=== PATIENT | female | born 1970 | race Hispanic/Latino ===

== ENCOUNTER 2021-01-31 13:15 | Outpatient (CLI) | payer OTHER | END 2021-01-31 13:16 | disposition home or self-care (01) | LOC: BURLAB 13:15 | PROVIDERS: ATTEND Registered Nurse Community Health | DX: R19.7 Diarrhea, unspecified (principal) | CPT/HCPCS: 87045; 87046; 87427; 87449 ==

== ENCOUNTER 2021-02-01 08:22 | Emergency (ER) | payer SELFPAY ==
[2021-02-01 09:00] LABS: #Basophils 0.1 thou/uL (0.0-0.2); #Lymphocytes 1.8 thou/uL (1.20-3.40); #Monocytes 0.9 thou/uL (0.11-0.59); #Neutrophils 9.8 thou/uL (1.40-6.50); %Basophils 0.4 % (0.0-1.0); %Eosinophils 0.3 % (0.0-10.0); %Lymphocytes 14.3 % (21.0-51.0); %Monocytes 6.9 % (0.0-10.0); %Neutrophils 78.1 % (42.0-75.0); Hemoglobin 14.2 g/dL (12.0-16.0); Mean Corpuscular HGB CONC 33.4 g/dL (32.0-36.0); Mean Corpuscular Volume 92.9 fL (78.0-98.0); Mean Platelet Volume 8.3 fL (7.4-10.4); Platelet Count 221 thou/uL (130-400); RBC Distribution Width 11.6 % (11.5-14.5); Red Blood Cell (RBC) Count 4.57 mill/uL (4.20-5.40); White Blood Cell (WBC) Count 12.6 thou/uL (4.8-10.8)
[2021-02-01 09:17] LABS: ALT (SGPT) 51 U/L (8-55); AST (SGOT) 35 U/L (5-34); Albumin 3.9 g/dL (3.5-5.0); Alkaline Phosphatase 96 U/L (40-110); Anion Gap 15 mmol/L (10-20); BUN (Urea Nitrogen) 6 mg/dL (9.8-20.1); Bilirubin, Total 0.8 mg/dL (0.2-1.2); Calc. Creatinine Clearance 0 mL/min (70-130); Calcium 8.9 mg/dL (7.8-10.44); Carbon Dioxide 25 mmol/L (22-29); Chloride 104 mmol/L (98-107); Globulin 3.8 g/dL (2.4-3.5); Glucose 129 mg/dL (70-105); Lipase 9 U/L (8-78); Magnesium 1.9 mg/dL (1.6-2.6); Potassium 3.9 mmol/L (3.5-5.1); Protein, Total 7.7 g/dL (6.0-8.3); Sodium 140 mmol/L (136-145)
[2021-02-01] MEDS ORDERED: Piperacillin/Tazobactam 4.5 GM VIAL ONE ×2 (09:19)
[2021-02-01] MEDS ORDERED: Fentanyl 100 MCG/2 ML VIAL ONE (09:19)
[2021-02-01] MEDS ORDERED: Sodium Chloride 0.9% 100 ML ONE (09:20)
[2021-02-01] MEDS ORDERED: Sodium Chloride 0.9% 0 ML ONE (09:20)
[2021-02-01 09:46] LABS: Bilirubin Negative (Negative); Blood, Urine Trace (Negative); Clarity Clear (Clear); Glucose, Urine (Dipstick) Negative (Negative); Ketone, Urine Negative (Negative); Leukocyte Negative (Negative); Nitrite Negative (Negative); Protein, Urine (Dipstick) Negative (Neg-Trace); Urobilinogen 0.2 mg/dL (Less than 2); pH, Urine 8.5 (5.0-9.0)
[2021-02-01 09:52] LABS: Bacteria/HPF Rare-Few HPF (None Seen); RBC/HPF 0-3 HPF (0-3); Squamous Epithelial 0-3 HPF (0-3); WBC/HPF 0-3 HPF (0-3)
[2021-02-01] MEDS ORDERED: Iopamidol 370 76% 100 ML VIAL ONE (12:37)
== END 2021-02-01 10:00 | disposition short-term general hospital (02) ==
LOC: BURERS 08:22
DX: K57.90 Diverticulosis of intestine, part unspecified, without perforation or abscess without bleeding (principal); K21.9 Gastro-esophageal reflux disease without esophagitis
CPT/HCPCS: 36415; 74177; 80053; 81003; 81015; 83605; 83690; 83735; 84443; 84484; 85025; 87040; 93005; 94760; 96365; 96375; J2543; J3010; J3490; J7050; Q9967